=== PATIENT | female | born 1955 | race Caucasian/White ===

== ENCOUNTER 2024-11-22 15:12 | Emergency (ER) | payer BC, SELFPAY ==
[2024-11-22 15:13] VITALS: BP 142/120; BMI 27.1
[2024-11-22 15:34] LABS: % Basophils 0.5 % (0-2); % Immature Granulocytes 0.3 % (0-0.5); % Monocytes 8.9 % (1.7-9.3); % Neutrophils 54.3 % (42.2-75.2); Absolute Eosinophils 0.1 10^3/uL (0-0.7); Absolute Lymphocytes 2.1 10^3/uL (1.2-3.4); Absolute Monocytes 0.5 10^3/uL (0.1-0.6); Absolute Neutrophils 3.3 10^3/uL (1.4-6.5); Hematocrit 45.2 % (37.0-47.0); Hemoglobin 15.6 g/dL (12.0-16.0); Mean Corp Hgb Conc. 34.5 g/dL (33.0-37.0); Mean Corpuscular Hgb 31.1 pg (27.0-31.0); Mean Platelet Volume 8.7 fL (7.4-10.4); Nucleated Red Blood Cells % 0 %; Platelet Count 264 10^3/uL (130-400); Red Blood Cell Count 5.02 10^6/uL (4.20-5.40); Red Cell Dist. Width 12.8 % (11.5-14.5); White Blood Cell Count 6.1 10^3/uL (4.8-10.8)
[2024-11-22 15:47] LABS: ALT (SGPT) 17 U/L (0-35); AST (SGOT) 24 U/L (14-36); Albumin 4.6 g/dl (3.5-5.0); Alkaline Phosphatase 68 U/L (38-126); Blood Urea Nitrogen 16 mg/dl (7-17); Calcium 10.5 mg/dl (8.4-10.2); Carbon Dioxide 25 mmol/L (22-30); Chloride 103 mmol/L (98-107); Estimated Creatinine Clearance 80 ml/min; Glucose 113 mg/dl (70-99); Potassium 4.3 mmol/L (3.5-5.1); Sodium 137 mmol/L (135-145); Total Bilirubin 0.7 mg/dl (0.2-1.3); Total Protein 7.6 g/dl (6.3-8.2); eGFR > 60.00
[2024-11-22 15:59] LABS: Troponin I < 0.012 ng/ml
[2024-11-22 16:00] VITALS: BP 150/134
--- NOTE | 2024-11-22 16:21 | ED.GENMED ---
History of Present Illness
General
Chief Complaint: Heart Rate Problem
Time Seen by Provider: 11/22/24 15:59
History of Present Illness
History of Present Illness:
68-year-old female presenting to the emergency department with feeling like she is going to pass out and elevated heart rate. Patient notes prior to arrival she was getting Botox, which she has had before. She started to feel lightheaded like she
was going to pass out and they noted that her heart rate was elevated. Medics were called. Patient appeared to be in A-fib, was given diltiazem. She denies known history of A-fib, however reports about a year ago she was told that her heart rate
was elevated, however it was thought to not be A-fib. She saw a clinical allergist at that time. She notes that about twice a week she will get palpitations that will go away, however more persistent today. She does note few days ago she did have
palpitations. Denies associated chest pain. Denies recent fever or illness. Denies additional acute medical complaints
Phy Exam
Physical Exam
Physical Exam:
General: Well-appearing, no clinical signs of dehydration, nontoxic and in no acute distress
HEENT: protecting airway
Neck: appears supple
CV: Tachycardic, irregular regular rhythm
Resp: No accessory muscle use, no increased work of breathing, lungs clear to auscultation bilaterally
Abd: Soft and non-distended, no tenderness to palpation
Extremities: No deformities, no swelling
Neuro: alert, no focal neurologic deficit
: deferred
Rectal: deferred
Psych: Normal affect
Skin: Intact
Scores
[id number] Score for Afib Stroke Risk
Age in Years (65=0, 65-74=1, >/=75=2): 65-74
Sex (Female=+1): Female
Congestive Heart Failure History (Yes=+1): No
Hypertension History (Yes=+1): Yes
Stroke/TIA/Thromboembolism History (Yes=+2): No
Vascular Disease History (Yes=+1): No
Diabetes Mellitus (Yes=+1): No
Score: 3
Anticoagulation Recommendations: Recommend anticoagulation (as validated in nonvalvular fib)
Course
Orders/Labs/Results
Orders:
Orders
11/22/24 15:13
Electrocardiogram (*1) Urgent
Reason for Study: Atrial Fibrillation
EKG- Treatment ONCE
11/22/24 15:21
Complete Blood Count/With Diff Urgent
Comprehensive Metabolic Panel Urgent
Troponin I Urgent
11/22/24 16:16
Diltiazem HCl [Cardizem] 20 mg IV NOW STA
Lorazepam [Ativan] 0.5 mg PO NOW STA
11/22/24 16:52
Electrocardiogram (*1) Urgent
Reason for Study: Other
Other Reason for Exam: rhythm change
EKG- Treatment ONCE
11/22/24 17:05
Apixaban [Eliquis] 5 mg PO ONCE ONE
Abnormal Lab Results
11/22/24
15:21
MCH 31.1 H pg
(27.0-31.0)
Glucose 113 H mg/dl
(70-99)
Calcium 10.5 H mg/dl
(8.4-10.2)
11/22/24 15:21
11/22/24 15:21
Vital Signs
Initial and Last Documented VS:
Initial Vital Signs
Temp Pulse Resp BP Pulse Ox
98 F 130 25 142/120 100
11/22/24 15:13 11/22/24 15:13 11/22/24 15:13 11/22/24 15:13 11/22/24 15:13
Last Documented Vital Signs
Temp Pulse Resp BP Pulse Ox
98 F 87 17 139/88 94
11/22/24 15:13 11/22/24 17:00 11/22/24 17:00 11/22/24 17:00 11/22/24 17:00
MDM/Problems Addressed
MDM/Problems Addressed:
68-year-old female presenting to the emergency department with near syncopal symptoms and elevated heart rate. Vital signs on arrival significant for tachycardia.
On exam patient resting comfortably, no acute distress. Patient notes that she feels anxious. EKG is consistent with atrial fibrillation with RVR. Suspected source patient's symptoms. Patient notes that she frequently gets palpitations on and
off throughout the week. Potential underlying history of A-fib. At this time do not feel that she is a candidate for cardioversion. Will treat with IV diltiazem and obtain laboratory analysis.
17:00 - Patient appears to have converted to sinus rhythm.
17:10 -given [id number] score, will start patient on Eliquis. Will also start her on low-dose metoprolol. Advised to closely follow-up with cardiology. Will provide information. Otherwise feel stable for discharge. Return precautions
discussed and patient verbalized understanding
*Pulse Oximetry
SaO2: 99
Oxygen Mode of Delivery: Room air
*EKG
Interpreted by ED Provider?: Yes
EKG Intrepretation Date: 11/22/24
EKG Intrepretation Time: 16:24
Interpretation: normal
Comparison EKG: no comparison EKG present
Heart Rate: 131
Rate: normal
Rhythm: a-fib
Bath: normal axis
QRS Pattern: normal QRS
Ischemia: non-specific ST changes
*Critical Care Note
Total Time (30-74mins, 75-104mins- exclusive of procedures): Not Applicable
ED Attending Note
-
Portions of this chart may have been created with voice recognition software.� Occasional wrong word or��sound alike� substitutions may have occurred due to the inherent limitations of voice recognition software.
Discharge Plan
Departure
Prescriptions:
New
Eliquis 5 mg tablet
5 mg PO Q12H 30 Days Qty: 60 0RF
metoprolol tartrate 25 mg tablet
25 mg PO DAILY 30 Days Qty: 30 0RF
Interventions
Interventions:
*Risk Screen - Suicide Last Done: 11/22/24 15:19
*General Assessment Last Done: 11/22/24 15:19
*Neglect/Abuse Screening Last Done: 11/22/24 15:19
*ED- Fall Risk Assessment Last Done: 11/22/24 15:19
*ED COVID-19 Vaccine History Last Done: 11/22/24 15:19
ED- Cardiac Assessment Last Done: 11/22/24 15:30
ED- Pulmonary Assessment Last Done: 11/22/24 15:30
Discharge Date and Time
Print Language: BENINESE
[2024-11-22] MEDS: ATIVAN 0.5 MG PO (16:22)
[2024-11-22] MEDS: CARDIZEM 20 MG IV (16:22)
[2024-11-22 16:57] VITALS: BP 142/90
[2024-11-22 17:00] VITALS: BP 139/88
[2024-11-22] MEDS: ELIQUIS 5 MG PO (17:13)
== END 2024-11-22 17:28 | disposition home or self-care (01) ==
LOC: EMR 15:12
PROVIDERS: EMERGENCY PHYSICIAN Student in an Organized Health Care Education/Training Program; FAMILY PHYSICIAN Internal Medicine
DX: I48.91 Unspecified atrial fibrillation (principal); Z79.01 Long term (current) use of anticoagulants
CPT/HCPCS: 99283; 96374; 80053; 84484; 85025; 93005